=== PATIENT | male | born 1995 | race Two or more races ===

== ENCOUNTER 2021-05-28 09:39 | Emergency (ER) | payer MEDICAID ==
[~2021-05-28] VITALS: Ht 170.2 cm; Wt 90.9 kg
[2021-05-28 11:16] VITALS: BP 131/82
== END 2021-05-28 11:33 | disposition home or self-care (01) ==
LOC: EMS 09:39
DX: A05.9 Bacterial foodborne intoxication, unspecified (principal)
CPT/HCPCS: 99281; Z7502